=== PATIENT | male | born 1965 | race African-American/Black ===

== ENCOUNTER 2018-05-07 18:34 | Observation (INO) | payer SELFPAY ==
[~2018-05-07 18:34] MED LIST: REGADENOSON INJ 0.4 MG/5 ML DISP.SYRIN IV ONE
[2018-05-07] MEDS ORDERED: ASPIRIN 81 MG TABLET, CHEWABLE PO ONE (18:36)
[2018-05-07] MEDS ORDERED: NITROGLYCERIN 0.4 MG/TAB 25 TAB/BOTTLE SL PRN ×2 (18:57→20:25)
--- NOTE | 2018-05-07 18:58 | ER Document Report ---
ED Medical Screen (RME) - General Chief Complaint: Chest Pain Stated Complaint: CHEST PAIN Time Seen by Provider: 05/07/18 18:53 Notes: 52 years old male with a history of hypertension not been taking any medications for 4-5 years presents today with precordial chest pain with difficulty in breathing started 1 hour prior to arrival. Pain is constant. Denies any left arm numbness tingling sensation nausea vomiting. Denies any palpitation or diaphoresis. On examination-moderate pain scale. EKG shows ST depression in V45 and 6. TRAVEL OUTSIDE OF THE [place] IN LAST 30 DAYS: No - Related Data Allergies/Adverse Reactions: No Known Allergies Allergy (Unverified 05/07/18 18:35) Past Medical History - Social History Frequency of alcohol use: Occasional Drug Abuse: None - Past Medical History Cardiac Medical History: Reports: Hx Hypertension Renal/ Medical History: Denies: Hx Peritoneal Dialysis Physical Exam - Vital signs Vitals: Temp Pulse Resp BP Pulse Ox 98.3 F 138 H 16 141/111 H 96 05/07/18 18:45 05/07/18 18:45 05/07/18 18:45 05/07/18 18:45 05/07/18 18:45 Course - Vital Signs Vital signs: Temp Pulse Resp BP Pulse Ox 98.3 F 138 H 16 141/111 H 96 05/07/18 18:45 05/07/18 18:45 05/07/18 18:45 05/07/18 18:45 05/07/18 18:45
--- NOTE | 2018-05-07 19:00 | RADIOLOGY REPORT (SQ) ---
EXAM DESCRIPTION: CHEST SINGLE VIEW COMPLETED DATE/TIME: 05/07/2018 6:47 pm REASON FOR STUDY: cp COMPARISON: None. EXAM PARAMETERS: NUMBER OF VIEWS: One view. TECHNIQUE: Single frontal radiographic view of the chest acquired. RADIATION DOSE: NA LIMITATIONS: None. FINDINGS: LUNGS AND PLEURA: No opacities, masses or pneumothorax. No pleural effusion. MEDIASTINUM AND HILAR STRUCTURES: No masses. Contour normal. HEART AND VASCULAR STRUCTURES: Heart normal in size. Normal vasculature. BONES: No acute findings. HARDWARE: None in the chest. OTHER: No other significant finding. IMPRESSION: NO ACUTE RADIOGRAPHIC FINDING IN THE CHEST. TECHNICAL DOCUMENTATION: JOB ID: [id number] [employer]- All Rights Reserved Reading location - IP/workstation name: [email or web address]
--- NOTE | 2018-05-07 19:04 | EKG REPORT ---
SEVERITY:- ABNORMAL ECG - SINUS RHYTHM PROBABLE LEFT ATRIAL ABNORMALITY INCOMPLETE RBBB AND LAFB LVH WITH SECONDARY REPOLARIZATION ABNORMALITY : Confirmed by: Atif Marlow MD 07-May-2018 19:03:25
[2018-05-07 19:16] LABS: ABSOLUTE BASOPHILS # (AUTO) 0.1 10^3/uL (0.0-0.2); ABSOLUTE EOSINOPHILS # (AUTO) 0.2 10^3/uL (0.0-0.6); ABSOLUTE LYMPHOCYTES (AUTO) 2.9 10^3/uL (0.5-4.7); ABSOLUTE MONOCYTES (AUTO) 0.5 10^3/uL (0.1-1.4); ABSOLUTE NEUT (AUTO) 4.5 10^3/uL (1.7-8.2); BASOPHILS % (AUTO) 0.9 % (0-2); EOSINOPHILS % (AUTO) 2.2 % (0-6); HEMATOCRIT 45.7 % (37.9-51.0); HEMOGLOBIN 15.4 g/dL (13.5-17.0); LYMPHOCYTES % (AUTO) 36.4 % (13-45); MEAN CORPUSCULAR HGB CONC 33.6 g/dL (32.0-36.0); MEAN CORPUSCULAR VOLUME 80 fl (80-97); MONOCYTES % (AUTO) 5.6 % (3-13); PLATELET COUNT 167 10^3/uL (150-450); RED BLOOD COUNT 5.69 10^6/uL (4.35-5.55); RED CELL DISTRIBUTION WIDTH 14.9 % (11.5-14.0); SEGMENTED NEUTROPHILS % (AUTO) 54.9 % (42-78); TOTAL CELLS COUNTED % (AUTO) 100 %; WHITE BLOOD COUNT 8.1 10^3/uL (4.0-10.5)
[2018-05-07 19:32] LABS: ALANINE AMINOTRANSFERASE 37 U/L (21-72); ALBUMIN 4.4 g/dL (3.5-5.0); ALKALINE PHOSPHATASE 53 U/L (38-126); ANION GAP 14 (5-19); ASPARTATE AMINO TRANSFERASE 27 U/L (17-59); BILIRUBIN,DIRECT 0.3 mg/dL (0.0-0.4); BILIRUBIN,TOTAL 0.4 mg/dL (0.2-1.3); BLOOD UREA NITROGEN 15 mg/dL (7-20); CALCIUM 9.8 mg/dL (8.4-10.2); CARBON DIOXIDE 24 mmol/L (22-30); CHLORIDE 107 mmol/L (98-107); CREATINE KINASE 246 U/L (55-170); GLUCOSE 164 mg/dL (75-110); POTASSIUM 4.3 mmol/L (3.6-5.0); SODIUM 145.1 mmol/L (137-145); TOTAL PROTEIN 7.4 g/dL (6.3-8.2)
[2018-05-07 19:44] LABS: CREATINE KINASE MB 1.97 ng/mL (<4.55)
[2018-05-07 19:45] LABS: TROPONIN I < 0.012 ng/mL
[2018-05-07] MEDS ORDERED: IPRATROPIUM/ALBUTEROL 0.5-2.5 MG/3 ML AMPUL NEB ONE (19:50)
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
[2018-05-07] MEDS ORDERED: MAG HYDROX/AL HYDROX/SIMETH SUSP 30 ML UDCUP PO PRN (20:18)
[2018-05-07] MEDS ORDERED: ACETAMINOPHEN 325 MG TABLET PO PRN (20:18)
[2018-05-07] MEDS ORDERED: TEMAZEPAM 15 MG CAPSULE PO PRN (20:18)
[2018-05-07] MEDS ORDERED: PROMETHAZINE HCL INJ 25 MG/1 ML VIAL IV PRN (20:18)
[2018-05-07] MEDS ORDERED: PROMETHAZINE HCL 25 MG TABLET PO PRN (20:18)
[2018-05-07] MEDS ORDERED: MORPHINE SULFATE 10 MG/ML INJ IV PRN (20:26)
[2018-05-07] MEDS ORDERED: HYDRALAZINE HCL INJ/PF 20 MG/1 ML SDV IV PRN (21:01)
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
[2018-05-07 21:24] LABS: APPEARANCE,URINE SLIGHTLY-CLOUDY; BILIRUBIN,URINE NEGATIVE (NEGATIVE); COLOR,URINE YELLOW; GLUCOSE, URINE NEGATIVE (NEGATIVE); KETONES,URINE NEGATIVE (NEGATIVE); LEUKOCYTE ESTERASE,URINE NEGATIVE (NEGATIVE); NITRITE,URINE NEGATIVE (NEGATIVE); PROTEIN,URINE NEGATIVE (NEGATIVE); URINE SPECIFIC GRAVITY 1.019
[2018-05-07 21:38] LABS: URINE AMPHETAMINES SCREEN NEGATIVE; URINE BARBITURATES SCREEN NEGATIVE; URINE BENZODIAZEPINES SCREEN NEGATIVE; URINE COCAINE SCREEN NEGATIVE; URINE MARIJUANA (THC) SCREEN UNCONFIRMED POSITIVE; URINE METHADONE SCREEN NEGATIVE; URINE PHENCYCLIDINE SCREEN NEGATIVE
[2018-05-07] MEDS: ENOXAPARIN SODIUM INJ 40 MG/0.4 ML DISP.SYRIN SUBCUT SCH (22:30)
[2018-05-08 06:52] LABS: HEMATOCRIT 41.1 % (37.9-51.0); HEMOGLOBIN 13.6 g/dL (13.5-17.0); MEAN CORPUSCULAR HEMOGLOBIN 26.5 pg (27.0-33.4); MEAN CORPUSCULAR HGB CONC 33.2 g/dL (32.0-36.0); MEAN CORPUSCULAR VOLUME 80 fl (80-97); PLATELET COUNT 146 10^3/uL (150-450); RED BLOOD COUNT 5.14 10^6/uL (4.35-5.55); RED CELL DISTRIBUTION WIDTH 15.4 % (11.5-14.0); WHITE BLOOD COUNT 7.4 10^3/uL (4.0-10.5)
[2018-05-08 07:08] LABS: ANION GAP 12 (5-19); BLOOD UREA NITROGEN 14 mg/dL (7-20); CARBON DIOXIDE 25 mmol/L (22-30); CHLORIDE 106 mmol/L (98-107); CHOLESTEROL 190.14 mg/dL (0-200); GLUCOSE 111 mg/dL (75-110); POTASSIUM 4.7 mmol/L (3.6-5.0); SODIUM 142.7 mmol/L (137-145); TRIGLYCERIDES 81 mg/dL (<150)
[2018-05-08 07:19] LABS: DIRECT LDL 134 mg/dL (<100)
[2018-05-08] MEDS: ENOXAPARIN SODIUM INJ 40 MG/0.4 ML DISP.SYRIN SUBCUT SCH (11:30)
[2018-05-08 13:56] VITALS: BP 169/80
--- NOTE | 2018-05-08 14:48 | PDOC DISCHARGE SUMMARY ---
General - Admit/Disc Date/PCP Admission Date/Primary Care Provider: 05/07/18 20:38 Discharge Date: 05/08/18 - Discharge Diagnosis (1) Chest pain Is this a current diagnosis for this admission?: Yes Summary: Patient will be discharged with nitroglycerin 0.4 mg sublingual tablets 1 every 5 minutes as needed chest pain with instructions to take up to 3 and then come to the emergency room for further evaluation. (2) Hypertension Is this a current diagnosis for this admission?: Yes Summary: Patient's blood pressure was marginally elevated throughout most of his hospital course. This should be followed by his primary care provider and if he continues to demonstrate elevated blood pressures on an outpatient basis in a comfortable environment treatment should be undertaken. At this point I do not feel that there is adequate indication to initiate therapy based upon blood pressures taken in a non-comfortable (hospital) environment as this would not reflect his blood pressure in his natural state. (3) COPD (chronic obstructive pulmonary disease) Is this a current diagnosis for this admission?: Yes Summary: Patient continues to be a polysubstance abuser, being an every day cigarette smoker and additionally smoking marijuana and using cocaine. He was advised to discontinue smoking cigarettes and brief cessation counseling was given. At this point his chronic obstructive pulmonary disease is mild and smoking cessation would certainly improve his health outlook. (4) PAULETTE (obstructive sleep apnea) Is this a current diagnosis for this admission?: Yes Summary: Patient gives a history of obstructive sleep apnea. He is currently not using any therapy for this of any nature. I advised him that he should discuss this with his primary care provider and perhaps he would be able to obtain appropriate equipment and supplies to help him with his obstructive sleep apnea based upon the results of his sleep study which his primary care provider most certainly has available. - Additional Information Resuscitation Status: Full Code Discharge Diet: Regular Discharge Activity: Activity As Tolerated, Walk Frequently Prescriptions: Nitroglycerin [Nitrostat 0.4 mg (1/150 Gr) Tabs 25/Bottle] 1 tab SL Q5MP PRN 30 Days #25 tab PRN Reason: Chest pain Home Medications: Nitroglycerin [Nitrostat 0.4 mg (1/150 Gr) Tabs 25/Bottle] 1 tab SL Q5MP PRN 30 Days #25 tab 05/08/18 History of Present Illness Patient complains of: Chest pain History of Present Illness: JOSE AGOSTO is a 52 year old male who presented to the emergency room with an acute onset episode of left chest pain just prior to his arrival. He stated that his nonradiating, left anterior lower chest pain is a dull tightness and it is of moderate to severe intensity waxing and waning between a 5/10 and a 10/ 10 and had its onset while he was at rest, sitting in a chair and talking with a family member. His pain was accompanied by dyspnea but he did not notice any signs of diaphoresis, nausea, vomiting, palpitations or syncope. His pain was present for approximately 30 minutes before his ER arrival and did not resolve until shortly after he was seen in the emergency room and treated with aspirin and nitroglycerin as well as supplemental oxygen. He admitted to numerous prior episodes of similar pain generally resolving within a minute or so after sitting down and relaxing. His emergency room evaluation showed normal troponins and an EKG with a sinus rhythm, incomplete right bundle branch block and nonspecific ST changes with no clear evidence for myocardial ischemia or injury. Hospital Course Hospital Course: 05/08/2018: He was admitted to observation status for serial cardiac enzymes which have remained negative for myocardial ischemia or injury. Additionally his EKG has remained unchanged and he underwent a cardiac stress test which was negative for coronary ischemic disease. Because of these findings he was discharged home in improved and stable condition. He was very happy to get the news that his cardiac evaluation was negative for coronary ischemia. Physical Exam Vital Signs: Temp Pulse Resp BP Pulse Ox 97.7 F 71 17 193/90 H 88 L 05/08/18 11:05 05/08/18 11:05 05/08/18 11:05 05/08/18 11:05 05/08/18 11:05 Intake & Output 05/06/18 05/07/18 05/08/18 23:59 23:59 23:59 Intake Total 900 Balance 900 Weight 117.3 kg General appearance: PRESENT: no acute distress, cooperative, obese, well- developed Head exam: PRESENT: atraumatic, normocephalic Eye exam: PRESENT: conjunctiva pink, EOMI Ear exam: PRESENT: normal external ear exam Mouth exam: PRESENT: neck supple Respiratory exam: PRESENT: clear to auscultation kelby, symmetrical, unlabored Cardiovascular exam: PRESENT: RRR. ABSENT: clicks, gallop, rubs Vascular exam: PRESENT: normal capillary refill. ABSENT: pallor Rectal exam: PRESENT: deferred Extremities exam: ABSENT: joint swelling, pedal edema Musculoskeletal exam: PRESENT: ambulatory, full ROM, normal inspection Neurological exam: PRESENT: alert, oriented to person, oriented to place, oriented to time, oriented to situation, CN II-XII grossly intact. ABSENT: motor sensory deficit Psychiatric exam: PRESENT: appropriate affect, normal mood Skin exam: PRESENT: dry, intact, warm Results Laboratory Results: 05/08/18 06:40 05/08/18 06:40 05/07/18 05/08/18 05/08/18 21:09 06:40 06:40 WBC 7.4 RBC 5.14 Hgb 13.6 Hct 41.1 MCV 80 MCH 26.5 L MCHC 33.2 RDW 15.4 H Plt Count 146 L Sodium 142.7 Potassium 4.7 Chloride 106 Carbon Dioxide 25 Anion Gap 12 BUN 14 Creatinine 0.63 Est GFR ( Amer) > 60 Est GFR (Non-Af Amer) > 60 Glucose 111 H Calcium 9.0 Magnesium 2.1 Triglycerides 81 Cholesterol 190.14 LDL Cholesterol Direct 134 H VLDL Cholesterol 16.0 HDL Cholesterol 49 Urine Color YELLOW Urine Appearance SLIGHTLY-CLOUDY Urine pH 6.0 Ur Specific [place] 1.019 Urine Protein NEGATIVE Urine Glucose (UA) NEGATIVE Urine Ketones NEGATIVE Urine Blood NEGATIVE Urine Nitrite NEGATIVE Ur Leukocyte Esterase NEGATIVE Urine WBC (Auto) 0 Urine RBC (Auto) 0 05/08/18 05/08/18 01:05 06:40 Troponin I 0.032 0.025 Impressions: Chest X-Ray 05/07/18 18:36 IMPRESSION: NO ACUTE RADIOGRAPHIC FINDING IN THE CHEST. Qualifiers - * PATIENT BEING DISCHARGED WITH ANY OF THE FOLLOWING DIAGNOSIS: No Plan Discharge Plan: Discharged to home in improved and stable condition Time Spent: Greater than 30 Minutes
--- NOTE | 2018-05-09 16:28 | DRAGON STRESS TEST REPORT ---
Intravenous Lexiscan Cardiolite stress test using single photon emmision computerized tomography. Date of procedure:05/08/2018. Ordering Provider: Dr. Charlotte Lopez. Patient's status: Inpatient. Indication: Chest pain. Coronary risk factors: Age, hypertension, and dyslipidemia. Resting EKG: Sinus Rhythm. LVH with strain pattern. Cannot exclude lateral wall ischemia. Stress EKG: No changes of ischemia. The patient had no chest pain or discomfort, and there were no arrhythmias seen. He had transient shortness of breath without wheezing, which subsided with the patient drinking Pepsi. Reason for termination: Protocol. Conclusions: Normal EKG and hemodynamic response to IV Lexiscan. Nuclear data: At rest the patient was given 14.95 millicuries of technetium 99m sestamibi injected intravenously. As per protocol rest non gated SPECT images were obtained. Subsequently the patient was given intravenous Lexiscan at a dose of 0.4 mg in 5 mL intravenously, followed by flush with normal saline. Subsequently the stress dose of 46.1 millicuries of technetium 99m sestamibi was injected intravenously. As per protocol stress gated images were obtained. Nuclear interpretation: Review of images showed that there was motion artifact, and diaphragmatic attenuation artifact of the inferior wall. In spite of this all segments of the myocardium had normal perfusion at rest, and normal perfusion post stress with IV Lexiscan. All segments of the myocardium had normal motion, contraction, and thickening by gated study. T. I D. ratio was normal at 1.03. Computer read rest, and stress left ventricular ejection fraction were 51 %, and 55 %, respectively. Visually both the stress and rest ejection fractions were normal, and greater than 55%. Conclusion: 1. There is no scintigraphic evidence of Lexiscan induced myocardial ischemia. 2. There is no scintigraphic evidence of myocardial infarction/scar. Recommendations: Aggressive risk factor modification, and treating the underlying co- morbidities. MTDD
== END 2018-05-08 14:10 | disposition home or self-care (01) ==
LOC: ER 18:34 → INTOOBSV 20:38 → EH 20:38 → 4N 22:01
PROVIDERS: ADMIT Internal Medicine; ATTEND Internal Medicine
DX: R07.89 Other chest pain (principal); I10 Essential (primary) hypertension; J44.9 Chronic obstructive pulmonary disease, unspecified; F17.210 Nicotine dependence, cigarettes, uncomplicated; F12.10 Cannabis abuse, uncomplicated; F14.10 Cocaine abuse, uncomplicated; G47.33 Obstructive sleep apnea (adult) (pediatric); I45.10 Unspecified right bundle-branch block; F10.10 Alcohol abuse, uncomplicated; E66.9 Obesity, unspecified; Z87.828 Personal history of other (healed) physical injury and trauma; Z91.14 Patient's other noncompliance with medication regimen; Z53.29 Procedure and treatment not carried out because of patient's decision for other reasons
CPT/HCPCS: 93005; 99285; 36415 ×2; 82553; 80307 ×2; 82550; 83735; 85025; 85027; 80048; 80053; 81001; 84484 ×2; 83036; 80061; 93017; 71045; 78452; 93010; A9500; J2785; J3490; Q9969; G0378